=== PATIENT | male | born 1975 | race Hispanic/Latino ===

== ENCOUNTER 2019-03-23 17:36 | Emergency (ER) | payer OTHER, SELFPAY ==
[2019-03-23 17:36] VITALS: BP 165/104; PULSE 84; RESP 14; TEMP 37.7; O2SAT 99; BMI 35.2
--- NOTE | 2019-03-23 17:55 | ED.DCSUM_ITS ---
History of Present Illness Chief Complaint: Abd Pain Detail of Chief Complaint: Epigastric abdominal pain Informant: Patient Onset: Days - 3 days Current Severity: Mild Maximum Severity: Moderate Narrative: Patient presents with epigastric abdominal pain for the past 2 to 3 days. He states he went home from work with upper abdominal pain. He took some Pepto-Bismol and ibuprofen it seemed to resolve. Since Monday he has had kind of an aching sensation in the upper abdomen he rates a 4 or 5 out of 10. He denies nausea or vomiting. No fever or chills. His last bowel movement was Monday morning. He has had prior cholecystectomy. No other abdominal surgeries. Past Medical History - Allergies and Home Meds Allergies/Adverse Reactions: Allergies No Known Allergies Allergy (Verified 03/23/19 17:40) Primary Care Physician: Care Physician,No Primary [Primary Care Provider] - Prior records reviewed: Yes Past Medical History: - - Reviewed Surgical History: cholecystectomy Smoking Status: Never smoker - Family History Paternal Family History: Reports: Cancer Review of Systems General: Denies: Chills, Fever Eyes: Denies: Visual changes - bilaterally ENT: Denies: Bilateral ear pain Cardiovascular: Denies: Chest pain Respiratory: Denies: Dyspnea, Cough Gastrointestinal: Reports: Abdominal pain. Denies: Nausea, Vomiting, Diarrhea Genitourinary: Denies: Dysuria Musculoskeletal: Denies: Back pain, Extremity Pain Skin: Denies: Rash Neurological: Denies: Headache Hematologic: Denies: Easy bruising Allergy: Denies: Uticaria Physical Exam Vital Signs/Narrative: Vital Signs Temp Pulse Resp BP Pulse Ox 03/23/19 17:36 99.9 F H 84 14 165/104 H 99 Inital Vital Signs reviewed: Yes General: Well nourished, Well developed Head: Normocephalic Eyes: Perrl, EOMI ENT: Moist mucous membranes Neck: Supple Cardiovascular: Regular rate, Regular rhythm Respiratory: No distress, CTA bilaterally Abdomen: Soft, Normal bowel sounds, Tender - Mild epigastric tenderness palpation.. Negative for: Guarding, Rebound tenderness Back: Nontender Extremities: Nontender Skin: Normal color, No rash Neurological: Alert, Oriented x3 Psychological: Normal affect Diagnostic/Tx/Re-eval Laboratory Results 03/23/19 03/23/19 03/23/19 18:05 18:05 18:55 WBC 13.7 H RBC 5.19 Hgb 15.5 Hct 46.2 MCV 89.0 MCH 29.9 MCHC 33.5 RDW Std Deviation 43.4 RDW Coeff of Guevara 13.2 Plt Count 239 MPV 12.0 Immature Gran % (Auto) 0.400 Neut % (Auto) 73.8 H Lymph % (Auto) 16.7 L [place] % (Auto) 7.0 Eos % (Auto) 1.7 Baso % (Auto) 0.4 Absolute Neuts (auto) 10.1 H Absolute Lymphs (auto) 2.30 Nucleated RBC % 0 Sodium 138 Potassium 3.4 L Chloride 106 Carbon Dioxide 27.0 Anion Gap 5 BUN 11 Creatinine 0.87 Estim Creat Clear Calc 111.88 Est GFR (MDRD) Af Amer 123 Est GFR (MDRD) Non-Af 102 BUN/Creatinine Ratio 12.7 Glucose 95 Calcium 8.7 Total Bilirubin 0.50 Direct Bilirubin 0.16 AST 24 ALT 42 Alkaline Phosphatase 111 Total Protein 8.9 H Albumin 3.7 Globulin 5.2 H Lipase 109 Urine Color Yellow Urine Clarity Sl. Cloudy Urine pH 6.0 Ur Specific [place] 1.020 Urine Protein Negative Urine Glucose (UA) Normal Urine Ketones Negative Urine Occult Blood 25 H Urine Nitrite Negative Urine Bilirubin Negative Urine Urobilinogen Normal Ur Leukocyte Esterase Negative Urine RBC 0-5 SEEN Urine WBC 0 SEEN Ur Squamous Epith Cells 0-5 SEEN Urine Bacteria 0 SEEN Urine Mucus 1+ - Medical Decision Making Patient was given a GI cocktail and repeat evaluation states he does feel imp roved. He had problems with reflux disease prior to his cholecystectomy, but states he really has not had much trouble since his surgery. Temperature is currently 98.2 orally. White count is minimally elevated. Test results are discussed with patient and his at bedside. He will be started on Prevacid. If he develops fever, worsening pain, vomiting, etc. he is to return for further evaluation. They voiced understanding and agreement. ED Disposition - Plan for ED Patient: Disposition: Home or Assisted Living Diagnosis: Epigastric pain Instructions: GASTRITIS vs. ULCER Prescriptions: Omeprazole [Prilosec] 20 mg PO DAILY #30 capsule Referrals: Betty Lora MD [STAFF PHYSICIAN] - As Needed
[2019-03-23] MEDS: 0.9% Normal Saline 1,000 ML 150 ML IV (18:09)
[2019-03-23] MEDS: Mag Hydrox/Al Hydrox/Simeth 30 ML UDC PO (18:09)
[2019-03-23 18:16] LABS: Absolute Neutrophil Count 10.1 X10^3/uL (2.0-7.7); Basophil# 0.06 X10^3/uL; Basophil% 0.4 % (0-1); Eosinophil# 0.23 X10^3/uL; Eosinophils% 1.7 % (0-5); Hematocrit 46.2 % (40-54); Hemoglobin 15.5 g/dL (13.0-16.5); Lymphocyte % 16.7 % (19-41); Mean Corp Hgb Conc 33.5 g/dL (32-36); Mean Corpuscular Hgb 29.9 pg (27.0-32.0); Monocyte# 0.96 X10^3/uL; NRBC Flagged by Analyzer 0 % (0-5); Neutrophil # 10.13 X10^3/uL (2.7-7.7); Neutrophil % 73.8 % (47-70); Platelet Count 239 K/mm3 (150-450); RBC Distribution Width CV 13.2 % (11.6-14.6); RBC Distribution Width SD 43.4 fl (35.1-43.9); Red Blood Count 5.19 M/mm3 (4.6-6.2); White Blood Count 13.7 K/mm3 (4.4-11.0)
[2019-03-23 18:33] LABS: AST(SGOT) 24 U/L (15-37); Alanine Aminotransfer ALT/SGPT 42 U/L (16-61); Albumin, Serum 3.7 g/dL (3.2-5.0); Alkaline Phosphatase 111 U/L (45-117); Anion Gap 5 (5-15); BUN 11 mg/dL (7-18); BUN/Creat Ratio 12.7 RATIO (10-20); Bilirubin, Direct 0.16 mg/dL (0.00-0.30); Calcium,Total 8.7 mg/dL (8.5-10.1); Chloride 106 mmol/L (98-107); Creatinine, Serum 0.87 mg/dL (0.70-1.30); EST Glomerular Filtration Rate 102 mL/min (>60); Est Glom Filt Rate - Afr Amer 123 mL/min (>60); Estimated Creatinine Clearance 111.88 ml/min; Globulin 5.2 g/dL (2.2-4.2); Glucose 95 mg/dL (74-106); Lipase 109 U/L (73-393); Potassium 3.4 mmol/L (3.5-5.1); Protein, Total 8.9 g/dL (6.4-8.2); Sodium Level 138 mmol/L (136-145)
[2019-03-23 19:05] LABS: Bacteria 0 SEEN /hpf (None Seen); White Blood Cells 0 SEEN /hpf (0-5)
[2019-03-23 19:17] LABS: Color, Urine Yellow (Yellow); Glucose, Dipstick Normal (Normal); Ketone-Dipstick Negative (Negative); Leukocyte Esterase-Dipstick Negative /ul (Negative); Nitrite-Dipstick Negative (Negative); Occult Blood-Urine 25 /ul (Negative); Protein-Dipstick Negative (Negative); Urine Bilirubin Dipstick Negative (Negative); Urine Clarity Sl. Cloudy (Clear); Urine Urobilinogen Normal (Normal)
[2019-03-23 19:20] LABS: Mucous, Urine 1+ /hpf (<or=2+)
[2019-03-23 19:21] LABS: Red Blood Cells-Urine 0-5 SEEN /hpf (0-5); Squamous Epithelial Cells - UA 0-5 SEEN /hpf (0-5)
[2019-03-23 19:37] VITALS: BP 165/98; PULSE 71; RESP 18; O2SAT 97
== END 2019-03-23 19:38 | disposition home or self-care (01) ==
PROVIDERS: Emergency Provider Emergency Medicine
DX: R10.13 Epigastric pain (principal); Z90.49 Acquired absence of other specified parts of digestive tract; Z79.899 Other long term (current) drug therapy
CPT/HCPCS: 80048; 80076; 81001; 83690; 85025; 96360; 99284; J7030

== ENCOUNTER 2019-03-24 03:28 | Emergency (ER) | payer OTHER, SELFPAY ==
[2019-03-23 17:36] VITALS: BMI 35.2
[2019-03-24 03:29] VITALS: BP 168/104; PULSE 77; RESP 16; TEMP 37; O2SAT 97; BMI 35.0
--- NOTE | 2019-03-24 03:53 | CT_ITS ---
STUDY: CT ABDOMEN AND PELVIS WITH CONTRAST REASON FOR EXAM: Male, 44 years old. Upper abdominal pain. TECHNIQUE: Transaxial images were obtained from the dome of the diaphragm to the symphysis pubis with oral contrast. IV Isovue 370 100ml was administered. Sagittal and coronal images were reconstructed. Individualized dose optimization techniques were used for this CT. COMPARISON: Abdominal ultrasound 06/17/2017. FINDINGS: Vascular: There is abnormal wall thickening of the celiac artery immediately after its origin, with mild stranding in the adjacent fat, and encroachment upon the lumen. This either markedly narrows for a long segment or occludes both the common hepatic and left gastric and proximal splenic branches. There is reconstitution of these branches more peripherally; the common hepatic and right and left hepatic arteries are patent. The more peripheral splenic artery is patent. Otherwise the patient's arteries are normal with no atherosclerosis, no abdominal aortic aneurysm, and normal appearance of the SMA and bilateral renal arteries. Partially visualized lower chest: Lung bases unremarkable. Liver: Diffuse hepatic steatosis. Mild hepatomegaly, right lobe 19.6 cm craniocaudad. No focal hepatic lesions are evident. Gallbladder and biliary tree: Status post cholecystectomy. Dilated cystic duct remnant measures 3.9 x 2.5 x 2.5 cm TRV X AP X CC, thin-walled with no visible gallstones within it and no adjacent inflammation. No biliary ductal dilation. A stent extends from the distal common bile duct into the duodenum. Pancreas: No pancreatic lesions or inflammation. Spleen: Normal size, no splenic lesions. No evidence of splenic infarct. Adrenal glands: No concerning masses. Kidneys and ureters: No hydronephrosis or renal stones. No concerning masses. No ureteral dilation. Bowel: Normal appendix. No obstruction or inflammation of the bowel. Scattered sigmoid colon diverticula, no diverticulitis. No evidence of bowel ischemia. Urinary bladder: No stones or wall thickening. Reproductive:Normal size prostate. Retroperitoneal and peritoneal spaces: No ascites or free air. No retroperitoneal lesions. Mild upper abdominal/pericaval adenopathy. Osseous: No acute osseous abnormality. Prominent disc degeneration L5-S1. Bilateral L5 spondylolysis with 8 mm anterolisthesis of L5 on S1. Abdominal and pelvic wall: No concerning findings. CT/Abdomen/Pelvis W IV Cont ONLY IMPRESSION: Marked long segment narrowing with possible occlusion of the celiac artery, and left gastric, proper hepatic, and proximal splenic artery branches. Reconstitution of these vessels more peripherally. The appearance is suspicious for dissection or arteritis of these vessels; the location and the appearance of the clot would be unusual for embolus. Stranding in the adjacent fat suggests that this is acute. The remainder of the patient's arteries are normal with no atherosclerosis. No evidence of end organ ischemia or infarct. Mild adjacent pericaval lymphadenopathy. Dilated cystic duct remnant in this patient status post cholecystectomy. This is not a typical postoperative finding. However the dilated cystic duct remnant is thin-walled with no adjacent inflammation. Biliary stent extends from the distal common bile that the end of the duodenum. No biliary ductal dilation. Hepatic steatosis and mild hepatomegaly. N.B. : The above information has been verbally conveyed by Roderick Ojeda to Radha Gregory MD, on 03/24/2019 05:12:58 (ET). Electronically Signed: Roderick Ojeda, at 5:20 EDT Tel , Service support ,
--- NOTE | 2019-03-24 03:55 | ED.DCSUM_ITS ---
History of Present Illness Chief Complaint: Abd Pain Informant: Patient Onset: Yesterday Context: Gradual Onset Timing: Continuous Current Severity: Severe Maximum Severity: Severe Worsened by: laying down, eating Relieved by: nothing Narrative: Patient is a 44-year-old male with history of cholecystectomy presenting with epigastric pain. Patient was seen yesterday (10 hours ago) for the same complaint. At that time he had improvement with a GI cocktail. He also had normal blood work. Patient states that has been home his pain is come back and worsen. He did start taking Prevacid as he was instructed to. Patient also took Pepto-Bismol and Tums with no improvement. He is also concerned because he has not had a bowel movement for the past 3 days which is very unusual for him. He denies associated nausea or vomiting. He states the pain is aching in his epigastric region. It does not radiate. Pain is worse when he lays down flat. He does not have associated shortness of breath or chest pain. He denies any associated urinary symptoms. He denies any black or bloody stools. He denies any other complaints at this time. He did have a history of heartburn before his gallbladder removal was not had any since. Past Medical History - Allergies and Home Meds Allergies/Adverse Reactions: Allergies No Known Allergies Allergy (Verified 03/24/19 03:35) Primary Care Physician: Care Physician,No Primary [Primary Care Provider] - Past Medical History: - - Hypertension Surgical History: cholecystectomy Smoking Status: Never smoker - Family History Paternal Family History: Reports: Cancer Review of Systems All systems negative except as indicated Gastrointestinal: Reports: Abdominal pain, Constipation Physical Exam Vital Signs/Narrative: Vital Signs Temp Pulse Resp BP Pulse Ox 03/24/19 03:29 98.6 F 77 16 168/104 H 97 Inital Vital Signs reviewed: Yes General: Well nourished, Well developed, No Acute Distress Head: Normocephalic, Atraumatic Eyes: Perrl, EOMI ENT: Moist mucous membranes, No rhinorrhea Neck: Supple, Nontender Cardiovascular: Regular rate, Regular rhythm, No murmurs Respiratory: No distress, CTA bilaterally, Chest nontender Abdomen: Soft, Nontender, Normal bowel sounds, Tender - Minimally?epigastric region, - - Mildly distended. Negative for: Guarding, Rebound tenderness, Ashton's sign Back: Nontender, Normal Inspection Extremities: Nontender, No edema Skin: Normal color, No rash Neurological: Alert, Oriented x3, Cranial nerves II-XII grossly intact, Normal Strength, Normal Sensation Psychological: Normal affect, Normal Mood Diagnostic/Tx/Re-eval Laboratory Results - last 24 hr 03/24/19 03/24/19 03/24/19 04:19 04:19 05:20 WBC 13.4 H RBC 5.20 Hgb 15.4 Hct 46.1 MCV 88.7 MCH 29.6 MCHC 33.4 RDW Std Deviation 43.1 RDW Coeff of Guevara 13.3 Plt Count 249 MPV 12.3 H Immature Gran % (Auto) 0.500 Neut % (Auto) 77.2 H Lymph % (Auto) 14.7 L [place] % (Auto) 6.6 Eos % (Auto) 0.7 Baso % (Auto) 0.3 Absolute Neuts (auto) 10.3 H Absolute Lymphs (auto) 1.96 Nucleated RBC % 0 PT 13.2 INR 1.0 APTT 29.5 Lactic Acid 1.3 Diagnostic Data Abdomen/Pelvis CT 03/24/19 03:53 IMPRESSION: Marked long segment narrowing with possible occlusion of the celiac artery, and left gastric, proper hepatic, and proximal splenic artery branches. Reconstitution of these vessels more peripherally. The appearance is suspicious for dissection or arteritis of these vessels; the location and the appearance of the clot would be unusual for embolus. Stranding in the adjacent fat suggests that this is acute. The remainder of the patient's arteries are normal with no atherosclerosis. No evidence of end organ ischemia or infarct. Mild adjacent pericaval lymphadenopathy. Dilated cystic duct remnant in this patient status post cholecystectomy. This is not a typical postoperative finding. However the dilated cystic duct remnant is thin-walled with no adjacent inflammation. Biliary stent extends from the distal common bile that the end of the duodenum. No biliary ductal dilation. Hepatic steatosis and mild hepatomegaly. N.B. : The above information has been verbally conveyed by Roderick Ojeda to Radha Gregory MD, on 03/24/2019 05:12:58 (ET). Electronically Signed: Roderick Ojeda, at 5:20 EDT Tel , Service support , ADDENDUM: 03/24/19 0527 IMPRESSION: Marked long segment narrowing with possible occlusion of the celiac artery, and left gastric, proper hepatic, and proximal splenic artery branches. Reconstitution of these vessels more peripherally. The appearance is suspicious for dissection or arteritis of these vessels; the location and the appearance of the clot would be unusual for embolus. Stranding in the adjacent fat suggests that this is acute. The remainder of the patient's arteries are normal with no atherosclerosis. No evidence of end organ ischemia or infarct. Mild adjacent pericaval lymphadenopathy. Dilated cystic duct remnant in this patient status post cholecystectomy. This is not a typical postoperative finding. However the dilated cystic duct remnant is thin-walled with no adjacent inflammation. Biliary stent extends from the distal common bile that the end of the duodenum. No biliary ductal dilation. Hepatic steatosis and mild hepatomegaly. N.B. : The above information has been verbally conveyed by Roderick Ojeda to Radha Gregory MD, on 03/24/2019 05:12:58 (ET). Electronically Signed: Roderick Ojeda, at 5:20 EDT Tel , Service support , - Medical Decision Making Patient is evaluated for worsening epigastric abdominal pain for the past 3 days. He was seen in the ER yesterday for similar complaints and had grossly normal work-up. Patient received GI cocktail and had improvement of his symptoms. He was discharged home on an antacid. Patient symptoms worsen at home and [id number] antacids were not helping anymore. CT scan performed which shows findings concerning for celiac artery abnormality with differential including dissection versus arteritis. Discussed these findings with radiologist and then surgery on-call, Dr. Vogel. He advised evaluation and transfer to hospital with IR as well as vascular surgery. I agree with this. Discussed with Dr. Miller at [facility] [place] who accepted the patient. He agreed with starting the patient on a heparin drip. Patient does have a normal lactate. Patient is given morphine for pain control. Patient is stable for medical transport. He is informed of potential diagnosis and need for more expert evaluation. Patient denies any black or bloody stools and contraindications for heparin. ED Disposition - Plan for ED Patient: [facility] - Main Diagnosis: Celiac artery stenosis, Epigastric abdominal pain Referrals: Care Physician,No Primary [Primary Care Provider] -
[2019-03-24] MEDS: Famotidine 200 MG/20 ML MDV 20 MG in 0.9% Normal Saline (Pres. free 8 ML 300 MG IV (04:23)
--- NOTE | 2019-03-24 05:31 | ED.RN ---
DR VERAGRA PAGED FOR DR DUFF
[2019-03-24 05:32] VITALS: BP 135/99; PULSE 87; RESP 16; O2SAT 97
[2019-03-24] MEDS: Morphine 4 MG/ML Syringe IV (05:48)
[2019-03-24 05:52] LABS: Prothrombin Time (Protime)PT. 13.2 SECONDS (11.7-14.9)
[2019-03-24 05:53] LABS: Partial Thromboplast Time 29.5 Seconds (24.1-36.2)
[2019-03-24 05:56] LABS: Absolute Lymphocyte Count 1.96 X10^3/uL (0.83-4.51); Absolute Neutrophil Count 10.3 X10^3/uL (2.0-7.7); Basophil# 0.04 X10^3/uL; Basophil% 0.3 % (0-1); Eosinophils% 0.7 % (0-5); Hematocrit 46.1 % (40-54); Hemoglobin 15.4 g/dL (13.0-16.5); Lymphocyte # 1.96 X10^3/ul (4.0); Lymphocyte % 14.7 % (19-41); Mean Corp Hgb Conc 33.4 g/dL (32-36); Mean Corpuscular Hgb 29.6 pg (27.0-32.0); Mean Corpuscular Volume 88.7 fL (80-94); Mean Platelet Vol. 12.3 fl (6.2-12.0); Monocyte# 0.88 X10^3/uL; Monocyte% 6.6 % (0-10); NRBC Flagged by Analyzer 0 % (0-5); Neutrophil % 77.2 % (47-70); Platelet Count 249 K/mm3 (150-450); RBC Distribution Width CV 13.3 % (11.6-14.6); RBC Distribution Width SD 43.1 fl (35.1-43.9); White Blood Count 13.4 K/mm3 (4.4-11.0)
[2019-03-24 05:58] LABS: Lactic Acid 1.3 mmol/L (0.4-2.0)
[2019-03-24] MEDS: Heparin Injection (Vial) 5,000 UNIT/ML VIAL 4000 UNIT IV (07:06)
[2019-03-24] MEDS: HEPARIN/D5w 25,000 UNITS 25,000 UNITS/250 ML IV.SOLN. 10 UNITS IV (07:08)
[2019-03-24 08:05] VITALS: BP 135/99; PULSE 87; RESP 16; O2SAT 97
--- NOTE | 2019-03-24 08:05 | ED.RN ---
REPORT GIVEN BY RICHARD KERNS.
== END 2019-03-24 08:08 | disposition short-term general hospital (02) ==
LOC: ED 04:09
PROVIDERS: Emergency Provider Emergency Medicine
DX: I77.4 Celiac artery compression syndrome (principal); R10.13 Epigastric pain; K59.00 Constipation, unspecified; I10 Essential (primary) hypertension; K76.0 Fatty (change of) liver, not elsewhere classified; R16.0 Hepatomegaly, not elsewhere classified; Z90.49 Acquired absence of other specified parts of digestive tract
CPT/HCPCS: 74177; 83605; 85025; 85610; 85730; 96365; 96375; 99284; Q9967; A4216; J3490

== ENCOUNTER 2020-09-17 15:10 | Outpatient (RCR) | payer OTHER, SELFPAY | END 2020-11-10 23:59 | LOC: IMMUN 15:10 | PROVIDERS: Referring Provider Family Medicine; Visit Provider Family Medicine | DX: Z23 Encounter for immunization (principal) | CPT/HCPCS: 0001A; 0002A; 91300 ==

== ENCOUNTER 2020-10-30 15:48 | Emergency (ER) | payer OTHER, SELFPAY ==
[2020-10-30 15:50] VITALS: BP 138/93; PULSE 82; RESP 16; TEMP 36.6; O2SAT 97; BMI 36.8
[2020-10-30] MEDS: HYDROcodone Bitartrate/Apap 5/325 Tablet PO (16:32)
--- NOTE | 2020-10-30 16:51 | RAD_ITS ---
STUDY: X-RAY - LEFT SHOULDER REASON FOR EXAM: Male, 45 years old. Injury/Pain TECHNIQUE: 5 view(s) of the shoulder. COMPARISON: None. FINDINGS: Normal glenohumeral articulation. Normal acromioclavicular joint. Normal acromion. Normal humeral head and visualized proximal humerus. The soft tissue structures are unremarkable. Normal visualized pulmonary apex. RAD/Shoulder min 2 Views IMPRESSION: Normal x-ray examination of the shoulder. Electronically Signed: Oliver Chand DO at 17:08 EDT Tel [phone], Service support ,
--- NOTE | 2020-10-30 16:51 | RAD_ITS ---
STUDY: X-RAY CHEST REASON FOR EXAM: Male, 45 years old. Trauma TECHNIQUE: Frontal view COMPARISON: 06/20/2017. FINDINGS: The lungs are clear and expanded. There is no demonstrated pleural abnormality. Normal size heart. Normal mediastinum and becka. Normal visualized pulmonary arteries. Normal visualized aortic arch and descending thoracic aorta. Normal visualized thoracic spine. Normal visualized ribs, clavicles, and shoulders. There is no demonstrated abnormality of the visualized soft tissue structures of the upper abdomen. RAD/Chest 1 View (Portable) IMPRESSION: Normal x-ray examination of the chest. Electronically Signed: Oliver Chand DO at 17:04 EDT Tel [phone], Service support ,
[2020-10-30 18:11] VITALS: BP 150/91; PULSE 85; RESP 16; O2SAT 95
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
[2020-10-30 18:53] VITALS: BP 150/91; PULSE 75; RESP 99; O2SAT 18
== END 2020-10-30 18:56 | disposition home or self-care (01) ==
PROVIDERS: Emergency Provider Emergency Medicine
DX: S40.012A Contusion of left shoulder, initial encounter (principal); I10 Essential (primary) hypertension; Y93.01 Activity, walking, marching and hiking; Z79.899 Other long term (current) drug therapy
CPT/HCPCS: 71045; 73030; 99285